=== PATIENT | female | born 1970 | race Caucasian/White ===

== ENCOUNTER 2017-06-27 12:19 | Inpatient (IN) | payer OTHER, MEDICAID ==
[2017-06-27 13:36] LABS: ADD MAN DIFF? NO
[2017-06-27 13:40] LABS: WHITE BLOOD COUNT 7.8 10^3/ul (4.8-10.8)
[2017-06-27 13:40] LABS: BASOPHIL # 0.1 10^3/ul (0.0-0.1); BASOPHILS % 0.8 % (0.0-2.0); EOSINOPHILS # 0.3 10^3/ul (0.0-0.5); EOSINOPHILS % 3.5 % (0.0-7.0); HEMATOCRIT 40.5 % (37.0-47.0); HEMOGLOBIN 14.6 g/dl (12.0-16.0); LYMPHOCYTES # 2.7 10^3/ul (0.8-2.9); MEAN CORPUSCULAR HEMOGLOBIN 31.3 pg (29.0-33.0); MEAN CORPUSCULAR VOLUME 86.7 fl (82.0-101.0); MONOCYTE # 0.7 10^3/ul (0.3-0.9); MONOCYTES % 8.3 % (0.0-11.0); NEUTROPHIL # 4.1 10^3/ul (1.6-7.5); NEUTROPHILS % 52.1 % (39.0-77.0); PLATELET COUNT 178 10^3/UL (140-415); RED BLOOD COUNT 4.67 10^6/ul (4.20-5.40); RED CELL DISTRIBUTION WIDTH 12.2 % (11.5-14.5)
[2017-06-27 13:57] LABS: ALANINE AMINOTRANSFERASE 73 IU/L (13-69); ALBUMIN 4.2 g/dl (3.3-4.9); ALBUMIN/GLOBULIN RATIO 1.05; ALKALINE PHOSPHATASE 215 IU/L (42-121); ANION GAP 16 (8-16); ASPARTATE AMINO TRANSFERASE 49 IU/L (15-46); BILIRUBIN,INDIRECT 0.3 mg/dl (0-1.1); BILIRUBIN,TOTAL 0.3 mg/dl (0.2-1.3); BLOOD UREA NITROGEN 12 mg/dl (7-20); CALCIUM 9.4 mg/dl (8.4-10.2); CARBON DIOXIDE 28 mmol/L (21-31); CHLORIDE 100 mmol/L (97-110); CREATININE 0.61 mg/dl (0.44-1.00); GLUCOSE 364 mg/dl (70-220); POTASSIUM 4.1 mmol/L (3.5-5.1); SODIUM 140 mmol/L (135-144); TOTAL PROTEIN 8.2 g/dl (6.1-8.1)
[2017-06-27] MEDS: ASPIRIN 325 MG TAB PO (14:02)
[2017-06-27] MEDS: NITROGLYCERIN 2% 1 GM OINT PKT TD (14:03)
[2017-06-27 14:29] LABS: TROPONIN-I < 0.012 ng/ml (0.00-0.12)
[2017-06-27] MEDS ORDERED: ACETAMINOPHEN 325 MG TAB PO ×2 (15:30→16:00)
[2017-06-27] MEDS ORDERED: ONDANSETRON 4 MG INJ IV (15:30)
[2017-06-27] MEDS ORDERED: NITROGLYCERIN (SL) 0.4 MG TAB SL (16:00)
[2017-06-27] MEDS: Discontinue current oral sulfonylureas (glyburide, glipizide, and/or glimepiride) prior to XX (16:00)
[2017-06-27] MEDS ORDERED: NACL 0.9% 3 ML SYG IV (16:00)
[2017-06-27] MEDS: HYPOGLYCEMIA PROTOCOL when Glucose is <70 mg/dL or symptomatic <90 mg/dL. XX (16:00)
[2017-06-27 16:04] LABS: D-DIMER 737.47 ng/ml (<460)
[2017-06-27 16:06] LABS: HEMOGLOBIN A1C 10.9 % (0-5.9)
[2017-06-27 16:10] LABS: FREE T4 (FREE THYROXINE) 1.13 ng/dl (0.64-1.79)
[2017-06-27 16:25] LABS: THYROID STIMULATING HORMONE 0.502 MIU/L (0.465-4.680)
[2017-06-27] MEDS ORDERED: GLUCAGON 1 MG INJ IM (16:30)
[2017-06-27] MEDS ORDERED: GLUCOSE GEL 15 GRAM TUBE BUCCAL (16:30)
[2017-06-27] MEDS ORDERED: GLUCOSE GEL 15 GRAM TUBE PO ×2 (16:30)
[2017-06-27] MEDS ORDERED: DEXTROSE 50% 50 ML SYRINGE IV ×2 (16:30)
[2017-06-27 16:52] LABS: B-TYPE NATRIURETIC PEPTIDE 98 PG/ML (0-125)
[2017-06-27 17:15] LABS: CARCINOEMBRYONIC ANTIGEN 2.4 ng/ml (0.0-5.0)
[2017-06-27 17:36] LABS: CANCER ANTIGEN 125 < 5.5 U/ml (0.0-35.0)
[2017-06-27] MEDS: INSULIN ASPART [NOVOLOG] 3 ML PEN SC ×2 (18:52)
[2017-06-27 20:15] LABS: CREATINE KINASE 48 IU/L (23-200)
[2017-06-27 20:29] LABS: CK INDEX 0.5
[2017-06-27 20:33] LABS: CK-MB < 0.22 ng/ml (0.0-2.4); TROPONIN-I < 0.012 ng/ml (0.00-0.12)
[2017-06-27] MEDS: HYDROCODONE/APAP (5/325) TAB PO (20:45)
[2017-06-28] MEDS: INSULIN GLARGINE [LANtus] 3 ML PEN SC ×2 (00:05→21:46)
[2017-06-28] MEDS: INSULIN ASPART [NOVOLOG] 3 ML PEN SC ×8 (00:07→21:51)
[2017-06-28] MEDS: HYDROCODONE/APAP (5/325) TAB PO ×3 (01:48→18:30)
[2017-06-28 07:51] LABS: ADD MAN DIFF? NO
[2017-06-28 07:57] LABS: BASOPHIL # 0.1 10^3/ul (0.0-0.1); BASOPHILS % 0.9 % (0.0-2.0); EOSINOPHILS # 0.4 10^3/ul (0.0-0.5); EOSINOPHILS % 4.7 % (0.0-7.0); HEMATOCRIT 39.4 % (37.0-47.0); HEMOGLOBIN 14.2 g/dl (12.0-16.0); LYMPHOCYTES # 3.7 10^3/ul (0.8-2.9); LYMPHOCYTES % 45.1 % (15.0-51.0); MEAN CORPUSCULAR HEMOGLOBIN 30.9 pg (29.0-33.0); MEAN CORPUSCULAR VOLUME 85.8 fl (82.0-101.0); MEAN PLATELET VOLUME 10.9 fl (7.4-10.4); MONOCYTE # 0.6 10^3/ul (0.3-0.9); MONOCYTES % 7.2 % (0.0-11.0); NEUTROPHIL # 3.4 10^3/ul (1.6-7.5); NEUTROPHILS % 41.9 % (39.0-77.0); PLATELET COUNT 180 10^3/UL (140-415); RED BLOOD COUNT 4.59 10^6/ul (4.20-5.40); RED CELL DISTRIBUTION WIDTH 12.4 % (11.5-14.5)
[2017-06-28 07:57] LABS: WHITE BLOOD COUNT 8.1 10^3/ul (4.8-10.8)
[2017-06-28 08:22] LABS: CREATINE KINASE 36 IU/L (23-200)
[2017-06-28 08:29] LABS: CK INDEX 0.6; TROPONIN-I < 0.012 ng/ml (0.00-0.12)
[2017-06-28 08:30] LABS: CK-MB < 0.22 ng/ml (0.0-2.4)
[2017-06-28 08:43] LABS: ALANINE AMINOTRANSFERASE 62 IU/L (13-69); ALBUMIN 3.9 g/dl (3.3-4.9); ALBUMIN/GLOBULIN RATIO 1.21; ALKALINE PHOSPHATASE 164 IU/L (42-121); ANION GAP 16 (8-16); ASPARTATE AMINO TRANSFERASE 43 IU/L (15-46); BILIRUBIN,INDIRECT 0.2 mg/dl (0-1.1); BILIRUBIN,TOTAL 0.2 mg/dl (0.2-1.3); BLOOD UREA NITROGEN 14 mg/dl (7-20); CALCIUM 9.3 mg/dl (8.4-10.2); CARBON DIOXIDE 27 mmol/L (21-31); CHLORIDE 104 mmol/L (97-110); CREATININE 0.56 mg/dl (0.44-1.00); GLUCOSE 170 mg/dl (70-220); POTASSIUM 3.9 mmol/L (3.5-5.1); SODIUM 143 mmol/L (135-144); TOTAL PROTEIN 7.1 g/dl (6.1-8.1)
[2017-06-28] MEDS: ASPIRIN (EC) 81 MG TAB PO (08:47)
[2017-06-28] MEDS: ENOXAPARIN 40 MG/0.4 ML SYG SC (08:55)
[2017-06-28 09:08] LABS: CHOLESTEROL 195 mg/dl (100-200)
[2017-06-28 09:08] LABS: CHOL/HDL RATIO 4.8 RATIO; HDL CHOLESTEROL 40 mg/dl (34-88); LDL CHOLESTEROL,CALCULATED 130 mg/dl; TRIGLYCERIDES 127 mg/dl (0-149)
[2017-06-28 09:09] LABS: MAGNESIUM 1.6 mg/dl (1.7-2.5)
[2017-06-28 09:09] LABS: PHOSPHORUS 4.6 mg/dl (2.5-4.9)
[2017-06-28] MEDS: MAGNESIUM SULFATE 2 GM/50 ML 50 ML IVPB (10:40)
[2017-06-28] MEDS: IODIXANOL LOCM 100 ML BTL (12:40)
[2017-06-28] MEDS: IODIXANOL LOCM 50 ML BTL (12:40)
[2017-06-28] MEDS: SOD CHLORIDE 0.9% 100 ML (12:41)
[2017-06-28 17:09] LABS: FOLATE 11.9 ng/ml (2.8-20.0)
[2017-06-28] MEDS: SOD CHLORIDE 0.9% 1,000 ML IV (17:13)
[2017-06-28 17:38] LABS: ADD UMIC YES; UR ASCORBIC ACID NEGATIVE (NEGATIVE); UR BACTERIA FEW /HPF (NONE SEEN); UR BILIRUBIN (Dip) NEGATIVE (NEGATIVE); UR BLOOD (Dip) NEGATIVE (NEGATIVE); UR CLARITY CLEAR (CLEAR); UR COLOR YELLOW (YELLOW); UR GLUCOSE (Dip) 1+ mg/dL (NEGATIVE); UR KETONES (Dip) NEGATIVE (NEGATIVE); UR LEUKOCYTE ESTERASE (Dip) 2+ Leu/ul (NEGATIVE); UR NITRITE (Dip) NEGATIVE (NEGATIVE); UR RBC 0 /HPF (0-5); UR SPECIFIC GRAVITY (Dip) 1.041 (1.003-1.030); UR SQUAMOUS EPITHELIAL CELL FEW /HPF (FEW); UR TOTAL PROTEIN (Dip) NEGATIVE (NEGATIVE); UR UROBILINOGEN (Dip) NEGATIVE (NEGATIVE); UR WBC 4 /HPF (0-5)
[2017-06-28] MEDS: ATORVASTATIN 20 MG TAB PO (21:45)
[2017-06-29] MEDS: HYDROCODONE/APAP (5/325) TAB PO ×4 (00:26→23:05)
[2017-06-29 07:36] LABS: ADD MAN DIFF? NO
[2017-06-29 07:40] LABS: WHITE BLOOD COUNT 7.4 10^3/ul (4.8-10.8)
[2017-06-29 07:41] LABS: BASOPHILS % 0.5 % (0.0-2.0); EOSINOPHILS # 0.4 10^3/ul (0.0-0.5); EOSINOPHILS % 5.8 % (0.0-7.0); HEMATOCRIT 38.8 % (37.0-47.0); HEMOGLOBIN 13.8 g/dl (12.0-16.0); LYMPHOCYTES # 2.8 10^3/ul (0.8-2.9); LYMPHOCYTES % 37.1 % (15.0-51.0); MEAN CORPUSCULAR HEMOGLOBIN 30.9 pg (29.0-33.0); MEAN CORPUSCULAR HGB CONC 35.6 g/dl (32.0-37.0); MEAN CORPUSCULAR VOLUME 86.8 fl (82.0-101.0); MEAN PLATELET VOLUME 10.7 fl (7.4-10.4); MONOCYTE # 0.7 10^3/ul (0.3-0.9); MONOCYTES % 9.3 % (0.0-11.0); NEUTROPHIL # 3.5 10^3/ul (1.6-7.5); NEUTROPHILS % 46.9 % (39.0-77.0); PLATELET COUNT 167 10^3/UL (140-415); RED BLOOD COUNT 4.47 10^6/ul (4.20-5.40); RED CELL DISTRIBUTION WIDTH 12.2 % (11.5-14.5)
[2017-06-29 08:04] LABS: ALANINE AMINOTRANSFERASE 58 IU/L (13-69); ALBUMIN 3.4 g/dl (3.3-4.9); ALBUMIN/GLOBULIN RATIO 0.89; ALKALINE PHOSPHATASE 130 IU/L (42-121); ANION GAP 13 (8-16); ASPARTATE AMINO TRANSFERASE 44 IU/L (15-46); BILIRUBIN,INDIRECT 0.4 mg/dl (0-1.1); BILIRUBIN,TOTAL 0.4 mg/dl (0.2-1.3); BLOOD UREA NITROGEN 14 mg/dl (7-20); CALCIUM 8.6 mg/dl (8.4-10.2); CARBON DIOXIDE 28 mmol/L (21-31); CHLORIDE 108 mmol/L (97-110); CREATININE 0.62 mg/dl (0.44-1.00); GLUCOSE 139 mg/dl (70-220); SODIUM 145 mmol/L (135-144); TOTAL PROTEIN 7.2 g/dl (6.1-8.1)
[2017-06-29 08:06] LABS: PHOSPHORUS 3.6 mg/dl (2.5-4.9)
[2017-06-29 08:06] LABS: MAGNESIUM 1.8 mg/dl (1.7-2.5)
[2017-06-29] MEDS: INSULIN ASPART [NOVOLOG] 3 ML PEN SC ×8 (08:38→20:25)
[2017-06-29] MEDS: ENOXAPARIN 40 MG/0.4 ML SYG SC (08:38)
[2017-06-29] MEDS: ONDANSETRON 4 MG INJ IV (10:57)
[2017-06-29] MEDS: ACET/BUTAL/CAFF TAB PO (12:03)
[2017-06-29] MEDS: ATORVASTATIN 20 MG TAB PO (20:24)
[2017-06-29] MEDS: INSULIN GLARGINE [LANtus] 3 ML PEN SC (20:26)
[2017-06-30] MEDS: ONDANSETRON 4 MG INJ IV (01:22)
[2017-06-30 06:17] LABS: ADD MAN DIFF? NO
[2017-06-30 06:19] LABS: BASOPHIL # 0.1 10^3/ul (0.0-0.1); EOSINOPHILS # 0.4 10^3/ul (0.0-0.5); EOSINOPHILS % 5.1 % (0.0-7.0); HEMATOCRIT 38.6 % (37.0-47.0); HEMOGLOBIN 13.9 g/dl (12.0-16.0); LYMPHOCYTES # 3.3 10^3/ul (0.8-2.9); LYMPHOCYTES % 39.7 % (15.0-51.0); MEAN PLATELET VOLUME 10.9 fl (7.4-10.4); MONOCYTE # 0.8 10^3/ul (0.3-0.9); MONOCYTES % 9.6 % (0.0-11.0); NEUTROPHIL # 3.7 10^3/ul (1.6-7.5); NEUTROPHILS % 44.2 % (39.0-77.0); PLATELET COUNT 182 10^3/UL (140-415); RED BLOOD COUNT 4.49 10^6/ul (4.20-5.40); RED CELL DISTRIBUTION WIDTH 12.2 % (11.5-14.5)
[2017-06-30 06:19] LABS: WHITE BLOOD COUNT 8.3 10^3/ul (4.8-10.8)
[2017-06-30 06:36] LABS: MAGNESIUM 1.8 mg/dl (1.7-2.5)
[2017-06-30 06:36] LABS: PHOSPHORUS 3.9 mg/dl (2.5-4.9)
[2017-06-30 06:55] LABS: ANION GAP 15 (8-16); BLOOD UREA NITROGEN 14 mg/dl (7-20); CARBON DIOXIDE 25 mmol/L (21-31); CHLORIDE 107 mmol/L (97-110); CREATININE 0.64 mg/dl (0.44-1.00); GLUCOSE 142 mg/dl (70-220); POTASSIUM 3.7 mmol/L (3.5-5.1); SODIUM 143 mmol/L (135-144)
[2017-06-30] MEDS: HYDROCODONE/APAP (5/325) TAB PO ×2 (08:40→15:59)
[2017-06-30] MEDS: ASPIRIN (EC) 81 MG TAB PO (08:46)
[2017-06-30] MEDS: INSULIN ASPART [NOVOLOG] 3 ML PEN SC ×7 (08:48→20:14)
[2017-06-30] MEDS: ENOXAPARIN 40 MG/0.4 ML SYG SC (08:49)
[2017-06-30] MEDS: ACET/BUTAL/CAFF TAB PO (10:52)
[2017-06-30] MEDS: ATORVASTATIN 20 MG TAB PO (20:10)
[2017-06-30] MEDS: NORTRIPTYLINE 10 MG CAP PO (20:12)
[2017-06-30] MEDS: INSULIN GLARGINE [LANtus] 3 ML PEN SC (20:14)
[2017-06-30] MEDS: morphine 2 MG INJ IV (20:18)
[2017-07-01] MEDS: morphine 2 MG INJ IV (02:07)
[2017-07-01] MEDS: INSULIN ASPART [NOVOLOG] 3 ML PEN SC ×4 (08:00→12:20)
[2017-07-01] MEDS: ASPIRIN (EC) 81 MG TAB PO (08:11)
[2017-07-01] MEDS: ENOXAPARIN 40 MG/0.4 ML SYG SC (08:12)
== END 2017-07-01 14:01 | disposition home or self-care (01) | DRG 313 ==
LOC: E/R 12:19 → TEL 15:02 → MS4 18:51 → PP2 06-29 18:13
DX: R07.89 Other chest pain (principal); I10 Essential (primary) hypertension; R51 Headache; R20.0 Anesthesia of skin; E11.65 Type 2 diabetes mellitus with hyperglycemia; R10.9 Unspecified abdominal pain; R74.0 Nonspecific elevation of levels of transaminase and lactic acid dehydrogenase [LDH]; E78.00 Pure hypercholesterolemia, unspecified; Z85.42 Personal history of malignant neoplasm of other parts of uterus; Z90.710 Acquired absence of both cervix and uterus
CPT/HCPCS: 36415; 70450; 70551; 71045; 71275; 74177; 76830; 80048; 80053; 80061; 81001; 82306; 82378; 82550; 82553; 82607; 82652; 82746; 82962; 83036; 83735; 83880; 84100; 84439; 84443; 84484; 85025; 85378; 86304; 93005; 93306; 96372; 99285-25; G0378

== ENCOUNTER 2017-07-22 22:55 | Emergency (ER) | payer OTHER ==
[2017-07-22] MEDS: SOD CHLORIDE 0.9% 1,000 ML IV (23:10)
[2017-07-22] MEDS: ONDANSETRON 4 MG INJ IV (23:10)
[2017-07-22] MEDS: morphine 2 MG INJ IV (23:11)
[2017-07-22 23:44] LABS: ADD MAN DIFF? NO
[2017-07-22 23:47] LABS: WHITE BLOOD COUNT 14.2 10^3/ul (4.8-10.8)
[2017-07-22 23:47] LABS: BASOPHIL # 0.1 10^3/ul (0.0-0.1); BASOPHILS % 0.4 % (0.0-2.0); EOSINOPHILS # 0.1 10^3/ul (0.0-0.5); EOSINOPHILS % 0.8 % (0.0-7.0); HEMATOCRIT 41.1 % (37.0-47.0); HEMOGLOBIN 14.8 g/dl (12.0-16.0); LYMPHOCYTES # 4.3 10^3/ul (0.8-2.9); LYMPHOCYTES % 30.2 % (15.0-51.0); MEAN CORPUSCULAR VOLUME 86.2 fl (82.0-101.0); MEAN PLATELET VOLUME 10.6 fl (7.4-10.4); MONOCYTE # 1.1 10^3/ul (0.3-0.9); NEUTROPHIL # 8.5 10^3/ul (1.6-7.5); NEUTROPHILS % 60.2 % (39.0-77.0); PLATELET COUNT 219 10^3/UL (140-415); RED BLOOD COUNT 4.77 10^6/ul (4.20-5.40); RED CELL DISTRIBUTION WIDTH 12.4 % (11.5-14.5)
[2017-07-22] MEDS: KETOROLAC 30 MG INJ IV (23:49)
[2017-07-23 00:06] LABS: ALANINE AMINOTRANSFERASE 50 IU/L (13-69); ALBUMIN 4.4 g/dl (3.3-4.9); ALBUMIN/GLOBULIN RATIO 1.04; ALKALINE PHOSPHATASE 163 IU/L (42-121); ANION GAP 18 (8-16); ASPARTATE AMINO TRANSFERASE 32 IU/L (15-46); BILIRUBIN,INDIRECT 0.4 mg/dl (0-1.1); BILIRUBIN,TOTAL 0.4 mg/dl (0.2-1.3); BLOOD UREA NITROGEN 13 mg/dl (7-20); CALCIUM 10.1 mg/dl (8.4-10.2); CARBON DIOXIDE 28 mmol/L (21-31); CHLORIDE 102 mmol/L (97-110); CREATININE 0.67 mg/dl (0.44-1.00); GLUCOSE 217 mg/dl (70-220); LIPASE 219 U/L (23-300); POTASSIUM 3.6 mmol/L (3.5-5.1); SODIUM 144 mmol/L (135-144); TOTAL PROTEIN 8.6 g/dl (6.1-8.1)
[2017-07-23] MEDS: METHOCARBAMOL 750 MG TAB PO (00:10)
[2017-07-23 00:24] LABS: ADD UMIC YES; UR ASCORBIC ACID NEGATIVE (NEGATIVE); UR BACTERIA MANY /HPF (NONE SEEN); UR BILIRUBIN (Dip) NEGATIVE (NEGATIVE); UR BLOOD (Dip) 2+ mg/dL (NEGATIVE); UR CLARITY CLOUDY (CLEAR); UR COLOR YELLOW (YELLOW); UR GLUCOSE (Dip) NEGATIVE (NEGATIVE); UR KETONES (Dip) NEGATIVE (NEGATIVE); UR LEUKOCYTE ESTERASE (Dip) 3+ Leu/ul (NEGATIVE); UR MUCUS FEW /HPF (NONE SEEN); UR NITRITE (Dip) POSITIVE (NEGATIVE); UR RBC 65 /HPF (0-5); UR SPECIFIC GRAVITY (Dip) 1.014 (1.003-1.030); UR SQUAMOUS EPITHELIAL CELL MODERATE /HPF (FEW); UR TOTAL PROTEIN (Dip) 2+ mg/dl (NEGATIVE); UR TRANSITIONAL EPI CELL FEW /HPF (NONE SEEN); UR UROBILINOGEN (Dip) NEGATIVE (NEGATIVE); UR WBC > 182 /HPF (0-5)
[2017-07-23] MEDS: CEFTRIAXONE 1 GM/50 ML (PMX) 50 ML IVPB (01:11)
== END 2017-07-23 03:01 | disposition home or self-care (01) ==
LOC: E/R 07-23 03:01
DX: N39.0 Urinary tract infection, site not specified (principal); K59.00 Constipation, unspecified; E11.9 Type 2 diabetes mellitus without complications; Z79.4 Long term (current) use of insulin; Z85.42 Personal history of malignant neoplasm of other parts of uterus
CPT/HCPCS: 36415; 74019; 80053; 81001; 83690; 85025; 96374; 96375; 99284-25

== ENCOUNTER 2017-10-13 23:24 | Emergency (ER) | payer OTHER ==
[2017-10-14] MEDS: HYDROCODONE/APAP (5/325) TAB PO (02:22)
== END 2017-10-14 04:57 | disposition home or self-care (01) ==
LOC: FTE 23:24
DX: R07.81 Pleurodynia (principal); E11.9 Type 2 diabetes mellitus without complications; Z79.4 Long term (current) use of insulin; Z85.42 Personal history of malignant neoplasm of other parts of uterus
CPT/HCPCS: 71045; 71100; 76705; 81025; 99284-25

== ENCOUNTER 2018-03-10 00:22 | Emergency (ER) | payer OTHER ==
[2018-03-10] MEDS: IBUPROFEN 800 MG TAB PO (03:15)
== END 2018-03-10 05:09 | disposition home or self-care (01) ==
LOC: FTE 00:22
DX: R07.89 Other chest pain (principal); E11.9 Type 2 diabetes mellitus without complications; Z85.42 Personal history of malignant neoplasm of other parts of uterus; Z79.4 Long term (current) use of insulin
CPT/HCPCS: 71045; 93005; 99283-25